=== PATIENT | male | born 1955 | race American Indian/Alaskan Native ===

== ENCOUNTER 2019-01-14 12:25 | Inpatient (IN) | payer OTHER ==
[~2019-01-14] VITALS: Ht 182.9 cm; Wt 139.4 kg
[~2019-01-14 12:25] MED LIST: HYDACE5 PO; IRBHYD150
[2019-01-14 14:00] LABS: BASOPHILS ABSOLUTE AUTO 0.03 K/mm3 (0.00-0.23); BASOPHILS PERCENT AUTO 0 % (0-2); EOSINOPHILS ABSOLUTE AUTO 0.06 K/mm3 (0.00-0.68); EOSINOPHILS PERCENT AUTO 0 % (0-6); Hemoglobin 14.9 g/dL (13.5-17.5); IMMATURE GRAN ABSOLUTE AUTO 0.08 K/mm3 (0.00-0.10); IMMATURE GRAN PERCENT AUTO 1 % (0-1); LYMPHOCYTES ABSOLUTE AUTO 1.53 K/mm3 (0.84-5.20); LYMPHOCYTES PERCENT AUTO 11 % (21-46); MONOCYTES ABSOLUTE AUTO 1.12 K/mm3 (0.16-1.47); MONOCYTES PERCENT AUTO 8 % (4-13); Mean Corpuscular HGB Conc 33.1 g/dL (31.5-36.5); Mean Corpuscular Volume 91 fL (80-100); Mean Platelet Volume 10.3 fL (9.1-12.4); NEUTROPHILS ABSOLUTE AUTO 11.63 K/mm3 (1.96-9.15); NEUTROPHILS PERCENT AUTO 80 % (41-73); Platelet Count 183 K/mm3 (150-400); RDW Coefficient Variation 12.4 % (11.7-14.2); Red Blood Cell Count 4.96 M/mm3 (4.30-5.90); White Blood Cell Count 14.45 K/mm3 (4.00-11.30)
[2019-01-14 14:33] LABS: Alanine Aminotransfer (ALT/SGP 41 U/L (12-78); Albumin, Blood 3.2 g/dL (3.4-5.0); Albumin/Globulin Ratio 0.6 (0.8-1.8); Alk Phos 114 U/L (50-136); Anion Gap 8 mmol/L (6-16); Aspartate Aminotrans (AST/SGOT 17 U/L (12-37); Bilirubin, Total 0.6 mg/dL (0.1-1.0); Blood Urea Nitrogen 18 mg/dL (8-24); CO2, Blood 29 mmol/L (21-32); Calcium, Blood 9.2 mg/dL (8.5-10.1); Chloride, Blood 92 mmol/L (98-108); Globulin, Blood 5.1 g/dL (2.2-4.0); Glomerular Filtration Rate >60 (60-); Glucose, Blood 426 mg/dL (70-99); Potassium, Blood 4.1 mmol/L (3.5-5.5); Sodium, Blood 129 mmol/L (136-145); Total Protein, Blood 8.3 g/dL (6.4-8.2)
[2019-01-14] MEDS ORDERED: XARELTO20 MG PO (16:27)
[2019-01-14] MEDS ORDERED: POTCHL10ER PO (16:28)
[2019-01-14] MEDS ORDERED: FURO20 PO (16:28)
[2019-01-14] MEDS ORDERED: GLIM4 PO (16:29)
[2019-01-14] MEDS ORDERED: METO100 PO (16:29)
[2019-01-14] MEDS ORDERED: Glucophage1000 MG PO (16:30)
[2019-01-14] MEDS ORDERED: ZESTORETIC 20-121 EA PO (16:31)
[2019-01-14] MEDS ORDERED: AMLO10 PO (16:31)
[2019-01-14] MEDS ORDERED: ALBU90OI61 INH (16:32)
--- NOTE | 2019-01-14 18:09 | NUR ---
PT ARRIVED TO UNIT AT 1800
--- NOTE | 2019-01-14 19:11 | NUR ---
PATIENT IN BED RESTING. NO COMPLAINTS. ANTIBIOTICS RUNNING.
--- NOTE | 2019-01-15 01:18 | NUR ---
VITALS TAKEN AT 2145 SHOWED VIEW SCORE OF 6 FOR HR 141 AND FEVER 101.7. CALLED TO HOSPITALIST AND ORDERED TO GIVE PTS NORMAL EVENING DOSE OF METOPROLOL 100MG ALSO TREATED FEVER WITH TYLENOL. RECHECKED VITALS @2247 MUCH BETTER. HR 103 TEMP 97.5. PT STATES FEELING FINE. WILL CONTINUE TO MONITOR.
--- NOTE | 2019-01-15 04:36 | NUR ---
NOC SHIFT SUMMARY PT ADMITTED YESTERDAY FOR INFECTION TO R GREAT TOE. HE IS AAOX4, RESP ARE EVEN AND UNLABORED. HE DID HAVE A VIEW SCORE OF 6 EARLY IN THIS SHIFT. CONTACTED [facility]ING AND BORING MACHINE FEEDER AND CALLED HOSPITALIST. HE HAS A HX OF AFIB AND HAD NOT TAKEN HIS EVENING METOPROLOL 100MG. GAVE METOPROLOL AND HR CAME DOWN FROM 139-150 DOWN TO 90'S-103. HIS FEVER WAS TREATED WITH TYLENOL WHICH BROUGHT FROM 102.2 TO 97.5. LAST VIEW SCORE OF 1. VSS SINCE. PT'S BLOOD SUGARS HAVE BEEN HIGH. 402 AT 2147, TREATED PER EMAR. AT 2334 BLOOD SUGAR OF 364. CALLED TO HOSPITALIST AND RECIEVED ORDER TO RECHECK AT 0200 AND TREAT PER SLIDING SCALE. AT 0220 SUGARG WER 321, TREATED PER SLIDING SCALE. PT IS CURRENLTY SLEEPING LIGHTLY AND APPEARS IN NO ACUTE DISTRESS. TOE IS VERY RED/SWOLLEN/DRAINING FLUID. WILL CONTINUE TO MONITOR.
[2019-01-15 05:31] LABS: BASOPHILS ABSOLUTE AUTO 0.03 K/mm3 (0.00-0.23); BASOPHILS PERCENT AUTO 0 % (0-2); EOSINOPHILS PERCENT AUTO 1 % (0-6); Hematocrit 40.6 % (37.0-53.0); Hemoglobin 13.5 g/dL (13.5-17.5); IMMATURE GRAN ABSOLUTE AUTO 0.07 K/mm3 (0.00-0.10); IMMATURE GRAN PERCENT AUTO 1 % (0-1); LYMPHOCYTES ABSOLUTE AUTO 1.26 K/mm3 (0.84-5.20); LYMPHOCYTES PERCENT AUTO 11 % (21-46); MONOCYTES ABSOLUTE AUTO 1.07 K/mm3 (0.16-1.47); MONOCYTES PERCENT AUTO 9 % (4-13); Mean Corpuscular HGB 29.9 pg (26.0-34.0); Mean Corpuscular HGB Conc 33.3 g/dL (31.5-36.5); Mean Corpuscular Volume 90 fL (80-100); NEUTROPHILS ABSOLUTE AUTO 9.42 K/mm3 (1.96-9.15); NEUTROPHILS PERCENT AUTO 79 % (41-73); Platelet Count 167 K/mm3 (150-400); RDW Coefficient Variation 12.4 % (11.7-14.2); RDW Standard Deviation 40.8 fL (35.1-46.3); Red Blood Cell Count 4.51 M/mm3 (4.30-5.90); White Blood Cell Count 11.95 K/mm3 (4.00-11.30)
[2019-01-15 05:55] LABS: Anion Gap 9 mmol/L (6-16); Blood Urea Nitrogen 17 mg/dL (8-24); CO2, Blood 27 mmol/L (21-32); Chloride, Blood 98 mmol/L (98-108); Creatinine, Blood 0.74 mg/dL (0.60-1.20); Glomerular Filtration Rate >60 (60-); Glucose, Blood 324 mg/dL (70-99); Potassium, Blood 3.9 mmol/L (3.5-5.5); Sodium, Blood 134 mmol/L (136-145)
--- NOTE | 2019-01-15 11:52 | NUR ---
01/15/19 1151 Ariel Marshall PT RECIEVED ANTIBIOTICS PRIOR TO ARRIVAL TO OR.
[2019-01-15 16:27] LABS: Vancomycin, Trough 12.2 ug/mL (5.0-10.0)
--- NOTE | 2019-01-15 19:58 | NUR ---
SUMMARY- PT A/O X3, HAD R GREAT TOE AMPUTATION SURGERY TODAY FROM APPROX [phone], POST OP VS INTACT, AFIBRILE. NEURO INTACT, PT WIDE AWAKE AND VERBAL, JOVIAL. TOLERATED FLUIDS RIGHT OFF AND ADVANCED THROUGH SHIFT TO SOLID ADA. SUGARS IN 300'S, USINS SS NOVOLOG. IN THE ROOM MOST OF THE SHIFT, SUPPORTIVE IN CARE. R FOOD HAS SURGICAL DRESSING, REMAINING TOES SHOWING, RED, GOOD CAP REFIL. SG DRESSING/ARNULFO LEFT ALONE. REPORTED TO ONLY REINFORCE NEEDED. PT DENIES PAIN HE HAS HX NEUROPATHY. REPORT TO [place] [facility]OR [facility].
--- NOTE | 2019-01-16 04:15 | NUR ---
NOC SHIFT SUMMARY PT IS PLEASANT AND COOPERATIVE WITH CARE. IN ROOM. HE HAD HIS R GREAT TOE SURGICALLY AMPUTATED YESTERDAY FOR INFECTION. DRESSING IS CLEAN, DRY, AND INTACT. PT APPEARS IN NO ACUTE DISTRESS. NO ACUTE EVENTS THIS NIGHT. WILL CONTINUE TO MONITOR.
--- NOTE | 2019-01-16 07:30 | NUR ---
PT. LYING IN BED HOB UP. DISCUSSED PT'S NEED OF A WC OR KNEE SCOOTER BEFORE GOING HOME HE IS NWBRLE. LET HIM KNOW MOST OF TE SUPPLY PLACES ARE CLOSED TODAY R/T IT BEING THURSDAY. SUGGESTED HE SEE IF HE CAN GET A WC FROM [facility] OR THE [facility] [employer]. THEN WHEN PLACES OPEN TOMORROW HE COULD GET THE KNEE SCOOTER. WE ALSO DISCUSSED HIS DIABETES MANAGEMENT.
--- NOTE | 2019-01-16 19:21 | NUR ---
PT. LYING IN BED AFTER DINNER DENIES PAIN OR NAUSEA. NO NOTEABLE CHANGES THIS SHIFT.
[2019-01-17 05:28] LABS: BASOPHILS ABSOLUTE AUTO 0.04 K/mm3 (0.00-0.23); BASOPHILS PERCENT AUTO 1 % (0-2); EOSINOPHILS ABSOLUTE AUTO 0.19 K/mm3 (0.00-0.68); EOSINOPHILS PERCENT AUTO 3 % (0-6); Hematocrit 40.7 % (37.0-53.0); Hemoglobin 13.1 g/dL (13.5-17.5); IMMATURE GRAN ABSOLUTE AUTO 0.04 K/mm3 (0.00-0.10); IMMATURE GRAN PERCENT AUTO 1 % (0-1); LYMPHOCYTES ABSOLUTE AUTO 1.69 K/mm3 (0.84-5.20); LYMPHOCYTES PERCENT AUTO 24 % (21-46); MONOCYTES ABSOLUTE AUTO 0.55 K/mm3 (0.16-1.47); MONOCYTES PERCENT AUTO 8 % (4-13); Mean Corpuscular HGB 29.1 pg (26.0-34.0); Mean Corpuscular HGB Conc 32.2 g/dL (31.5-36.5); Mean Corpuscular Volume 90 fL (80-100); Mean Platelet Volume 10.3 fL (9.1-12.4); NEUTROPHILS ABSOLUTE AUTO 4.66 K/mm3 (1.96-9.15); NEUTROPHILS PERCENT AUTO 65 % (41-73); Platelet Count 206 K/mm3 (150-400); RDW Coefficient Variation 12.3 % (11.7-14.2); RDW Standard Deviation 40.5 fL (35.1-46.3); White Blood Cell Count 7.17 K/mm3 (4.00-11.30)
[2019-01-17 05:41] LABS: Vancomycin, Trough 5.6 ug/mL (5.0-10.0)
[2019-01-17 06:00] LABS: Albumin, Blood 2.6 g/dL (3.4-5.0); Anion Gap 9 mmol/L (6-16); Blood Urea Nitrogen 15 mg/dL (8-24); Bun/Creatinine Ratio 19.2 (12.0-20.0); CO2, Blood 27 mmol/L (21-32); Calcium, Blood 8.9 mg/dL (8.5-10.1); Chloride, Blood 100 mmol/L (98-108); Creatinine, Blood 0.78 mg/dL (0.60-1.20); Glomerular Filtration Rate >60 (60-); Glucose, Blood 275 mg/dL (70-99); Phosphorus, Blood 3.3 mg/dL (2.5-4.9); Sodium, Blood 136 mmol/L (136-145)
--- NOTE | 2019-01-17 07:52 | NUR ---
NOC SHIFT SUMMARY. PT PLEASANT AND COOPERATIVE WITH CARE. DRESSING TO R FOOT IS C/D/I. VSS. PER NOTE PT WILL NEED RX FOR KNEE SKOOTER, CONSULT WITH DIETITION, AND DIABETIC SUPPLIES. HIS PCP IS THROUGH [facility]. NO ACUTE EVENT LAST NIGHT. APPEARS IN NO ACUTE DISTRESS. REPORT TO ONCOMING RN.
[2019-01-17] MEDS ORDERED: Rocephin 1g1 G/50 ML IV (16:53)
[2019-01-17] MEDS ORDERED: Norco 5-325 Ta1 EACH PO (16:53)
[2019-01-17] MEDS ORDERED: INSULANPEN SC (16:53)
[2019-01-17] MEDS ORDERED: Culturelle1 CAP PO (16:54)
--- NOTE | 2019-01-17 18:16 | NUR ---
DISCHARGE PT IS A/O X4, PLEASANT AFFECT, COOPERATIVE WITH NON WT BRG STATUS RLE. DR HANCOCK IN TO SEE HIM THIS AM, DRSG RLE CDI, PT TO F/U WITH DR HANCOCK THIS THURSDAY. DR SANTOS IN TO SEE PT, ORDER CONSULT W DR CRAIG FOR ANTIBX OUTPT. DR CRAIG PLACE ANTIBX ORDERS FOR [address] SANTOS PLACE D/C ORDERS. FERRIS WHEEL ATTENDANT PLACE PICC LINE & ARRANGE APPT FOR PT WITH ATC. D/C INSTRUCT PROVIED WITH EMPHASIS ON CAREFUL MX & RECORD BLOOD SUGAR, INSULIN ADMINISTRATION, PICC CARE, F/U DR JUSTINT. PT & VERBALIZE UNDERSTANDING. THEY ARE PLEASANT & APPRECIATIVE. PT PROVIDED W/C ESCORT FROM HOSP & ASSISTED INTO AUTO. SCRIPTS FAXED TO [facility] HARD COPY SCRIPTS PROVIDED TO PT.
== END 2019-01-17 17:55 | disposition home or self-care (01) | DRG 255 ==
LOC: ER 12:25 → MEDS 16:19 → ENPENDDIS 01-17 17:22 → MEDS 01-17 17:55
PROVIDERS: Family Medicine; Physician Assistant; Podiatrist Foot & Ankle Surgery; ADMIT Internal Medicine
PROC: 0Y6P0Z0 Detachment at Right 1st Toe, Complete, Open Approach (ICD-10-PCS; principal; 2019-01-15 11:00)
DX: E11.52 Type 2 diabetes mellitus with diabetic peripheral angiopathy with gangrene (principal); A48.0 Gas gangrene; M86.9 Osteomyelitis, unspecified; M84.477A Pathological fracture, right toe(s), initial encounter for fracture; R78.81 Bacteremia; E11.621 Type 2 diabetes mellitus with foot ulcer; E11.69 Type 2 diabetes mellitus with other specified complication; L97.519 Non-pressure chronic ulcer of other part of right foot with unspecified severity; Z79.4 Long term (current) use of insulin; E11.59 Type 2 diabetes mellitus with other circulatory complications; E11.40 Type 2 diabetes mellitus with diabetic neuropathy, unspecified; I48.2 Chronic atrial fibrillation; Z79.01 Long term (current) use of anticoagulants; E11.65 Type 2 diabetes mellitus with hyperglycemia; B95.1 Streptococcus, group B, as the cause of diseases classified elsewhere
CPT/HCPCS: 36415; 71045; 73630; 80048; 80053; 80069; 80202; 82947; 83036; 83605; 85025; 85651; 86140; 87040; 87147; 93005; 93010; 93306; 96365; 99284-25; J0696; J0744; J2250; J2370; J2704; J3010; J3370; J7030; J7050; J7120

== ENCOUNTER 2019-01-19 09:52 | Day surgery (SDC) | payer OTHER ==
[~2019-01-19 09:52] MED LIST changes: +ALBU90OI61 INH; +AMLO10 PO; +Culturelle1 CAP PO; +FURO20 PO; +GLIM4 PO; +Glucophage1000 MG PO; +INSULANPEN SC; +METO100 PO; +Norco 5-325 Ta1 EACH PO; +POTCHL10ER PO; +Rocephin 1g1 G/50 ML IV; +XARELTO20 MG PO; +ZESTORETIC 20-121 EA PO
--- NOTE | 2019-01-19 10:46 | NUR ---
1030- PATIENT STATES HE HAS A RASH THAT STARTED APPROXIMATELY 1 HOUR POST INITIAL INFUSION OF IV ABX PRIRO TO D/C FROM HOSPITAL THAT CONTINUES TO GROW EVERY DAY AND IS "ITCHY". RASH AND REDNESS STARTS FROM R MEDIAL LE STARTING AROUND ANKLE THE MOVING UP TO MID THIGH. PT STATES HE ALSO HAS A SPOT ON BACK THAT HIS FOUND LAST NIGHT. ATTEMPTED TO NOTIFY DR. CRAIG AT HIS OFFICE BUT STAFF STATED HE HASN'T BEEN SEEN IN OFFICE YET SO I CALLED THE CONSULT LINE AND LEFT MSG EXPLAINING SITUATION TO MD. TALKED WITH PHARMACIST SAÚL AND HE AGREED TO HOLD AND CONTACT MD ON REACTION TO RX. HELD ROCEPHIN AND TOLD PT TO CALL PRIOR TO APPOINTMENT ON THURSDAY TO SEE IF WE HAVE HEARD FROM MD. NOTIFIED RN FOR THURSDAY SHIFT.
--- NOTE | 2019-01-19 14:18 | NUR ---
DR. CRAIG CALLED BACK TO CLINIC WITH NEW ORDERS TO START VANCO PER PHARMACY PROTOCOL, HOWEVER IF PATIENT CAN NOT HANDLE BID ORDERS THEN WE ARE TO CALL MD BACK TO TRY A DIFFERENT TX.
== END 2019-01-19 22:44 | disposition home or self-care (01) ==
LOC: ATC 09:52
DX: E11.69 Type 2 diabetes mellitus with other specified complication (principal); M86.9 Osteomyelitis, unspecified; I10 Essential (primary) hypertension; J45.909 Unspecified asthma, uncomplicated; E11.65 Type 2 diabetes mellitus with hyperglycemia; E87.1 Hypo-osmolality and hyponatremia; I48.91 Unspecified atrial fibrillation; Z88.0 Allergy status to penicillin
CPT/HCPCS: J0696

== ENCOUNTER 2019-01-23 09:50 | Day surgery (SDC) | payer OTHER | END 2019-01-23 10:31 | disposition home or self-care (01) | LOC: ATC 09:50 | DX: E11.69 Type 2 diabetes mellitus with other specified complication (principal); M86.9 Osteomyelitis, unspecified; E11.52 Type 2 diabetes mellitus with diabetic peripheral angiopathy with gangrene; A48.0 Gas gangrene; I10 Essential (primary) hypertension; I48.91 Unspecified atrial fibrillation; D72.829 Elevated white blood cell count, unspecified; J45.909 Unspecified asthma, uncomplicated; E66.9 Obesity, unspecified; Z88.0 Allergy status to penicillin; Z79.899 Other long term (current) drug therapy; Z79.84 Long term (current) use of oral hypoglycemic drugs | CPT/HCPCS: 96365; J0878 ==

== ENCOUNTER 2019-01-24 09:56 | Day surgery (SDC) | payer OTHER | END 2019-01-24 10:35 | disposition home or self-care (01) | LOC: ATC 09:56 | DX: E11.69 Type 2 diabetes mellitus with other specified complication (principal); M86.9 Osteomyelitis, unspecified; I10 Essential (primary) hypertension; I48.91 Unspecified atrial fibrillation; J45.909 Unspecified asthma, uncomplicated; E66.9 Obesity, unspecified; Z88.0 Allergy status to penicillin | CPT/HCPCS: J0878 ==

== ENCOUNTER 2019-01-26 00:37 | Day surgery (SDC) | payer OTHER | END 2019-01-26 10:29 | disposition home or self-care (01) | LOC: ATC 00:37 | DX: E11.69 Type 2 diabetes mellitus with other specified complication (principal); M86.9 Osteomyelitis, unspecified; I10 Essential (primary) hypertension; J45.909 Unspecified asthma, uncomplicated; Z88.0 Allergy status to penicillin; Z79.899 Other long term (current) drug therapy; Z79.4 Long term (current) use of insulin | CPT/HCPCS: 96365; J0878 ==

== ENCOUNTER 2019-06-30 08:40 | Emergency (ER) | payer OTHER ==
[~2019-06-30] VITALS: Ht 193 cm; Wt 136.1 kg
[2019-06-30 09:30] LABS: BASOPHILS ABSOLUTE AUTO 0.09 K/mm3 (0.00-0.23); BASOPHILS PERCENT AUTO 1 % (0-2); EOSINOPHILS ABSOLUTE AUTO 1.07 K/mm3 (0.00-0.68); EOSINOPHILS PERCENT AUTO 10 % (0-6); Hematocrit 44.5 % (37.0-53.0); Hemoglobin 14.7 g/dL (13.5-17.5); IMMATURE GRAN ABSOLUTE AUTO 0.02 K/mm3 (0.00-0.10); IMMATURE GRAN PERCENT AUTO 0 % (0-1); LYMPHOCYTES ABSOLUTE AUTO 1.49 K/mm3 (0.84-5.20); LYMPHOCYTES PERCENT AUTO 14 % (21-46); MONOCYTES PERCENT AUTO 6 % (4-13); Mean Corpuscular HGB 29.6 pg (26.0-34.0); Mean Corpuscular Volume 90 fL (80-100); NEUTROPHILS ABSOLUTE AUTO 7.58 K/mm3 (1.96-9.15); NEUTROPHILS PERCENT AUTO 70 % (41-73); Platelet Count 165 K/mm3 (150-400); RDW Coefficient Variation 12.9 % (11.7-14.2); RDW Standard Deviation 42.2 fL (35.1-46.3); Red Blood Cell Count 4.96 M/mm3 (4.30-5.90); White Blood Cell Count 10.85 K/mm3 (4.00-11.30)
[2019-06-30] MEDS ORDERED: Aldactone100 MG PO (09:41)
[2019-06-30] MEDS ORDERED: Amlodipine Besy10 MG PO (09:41)
[2019-06-30] MEDS ORDERED: ZESTORETIC 20-1 EACH PO (09:41)
[2019-06-30] MEDS ORDERED: ATOR40TA PO (09:42)
[2019-06-30] MEDS ORDERED: XARELTO20 MG PO (09:42)
[2019-06-30] MEDS ORDERED: SILD25T PO (09:42)
[2019-06-30] MEDS ORDERED: GLIM4 PO (09:43)
[2019-06-30] MEDS ORDERED: METO100 PO (09:43)
[2019-06-30] MEDS ORDERED: ALBU3IS INH (09:43)
[2019-06-30] MEDS ORDERED: METF500C PO (09:43)
[2019-06-30] MEDS ORDERED: INSULANPEN SC (09:44)
[2019-06-30 11:22] LABS: Alanine Aminotransfer (ALT/SGP 39 U/L (12-78); Albumin, Blood 3.7 g/dL (3.4-5.0); Albumin/Globulin Ratio 0.9 (0.8-1.8); Alk Phos 100 U/L (50-136); Anion Gap 7 mmol/L (6-16); Aspartate Aminotrans (AST/SGOT 27 U/L (12-37); Bilirubin, Total 0.4 mg/dL (0.1-1.0); Blood Urea Nitrogen 16 mg/dL (8-24); Bun/Creatinine Ratio 18.2 (12.0-20.0); CO2, Blood 27 mmol/L (21-32); Calcium, Blood 9.1 mg/dL (8.5-10.1); Chloride, Blood 102 mmol/L (98-108); Creatinine, Blood 0.88 mg/dL (0.60-1.20); Glomerular Filtration Rate >60 (60-); Glucose, Blood 202 mg/dL (70-99); Potassium, Blood 4.5 mmol/L (3.5-5.5); Sodium, Blood 136 mmol/L (136-145); Total Protein, Blood 7.7 g/dL (6.4-8.2); Troponin I <0.015 ng/mL (0.000-0.040)
[2019-06-30] MEDS ORDERED: ALBU90OI INH (11:56)
[2019-06-30] MEDS ORDERED: BENZ100A PO (11:56)
[2019-06-30] MEDS ORDERED: Prednisone20 MG PO (11:56)
[2019-06-30] MEDS ORDERED: [UNRECOGNIZED DRUG - SUPPLY] PO (12:09)
[2019-06-30] MEDS ORDERED: Ventolin Sy2 MG/5 ML PO (12:09)
== END 2019-06-30 12:19 | disposition home or self-care (01) ==
LOC: ER 08:40
PROVIDERS: Emergency Medicine
DX: J40 Bronchitis, not specified as acute or chronic (principal); I48.91 Unspecified atrial fibrillation; R09.02 Hypoxemia; E11.65 Type 2 diabetes mellitus with hyperglycemia; I10 Essential (primary) hypertension; Z87.891 Personal history of nicotine dependence; Z88.0 Allergy status to penicillin; Z88.1 Allergy status to other antibiotic agents; Z79.899 Other long term (current) drug therapy; Z79.01 Long term (current) use of anticoagulants; Z79.4 Long term (current) use of insulin
CPT/HCPCS: 36415; 71046; 80053; 83880; 84484; 85025; 93005; 93010; 94644; 96374; 99284-25; J2930

== ENCOUNTER 2020-07-02 07:02 | Inpatient (IN) | payer OTHER ==
[~2020-07-02] VITALS: Ht 190.5 cm; Wt 136.2 kg
[~2020-07-02 07:02] MED LIST changes: +ALBU3IS INH; +ALBU90OI INH; +ATOR40TA PO; +Aldactone100 MG PO; +Amlodipine Besy10 MG PO; +BASAGLAR K100 UNIT/1 SC; +BENZ100A PO; +METF500 PO; +Prednisone20 MG PO; +SILD25T PO; +Ventolin Sy2 MG/5 ML PO; +ZESTORETIC 20-1 EACH PO; +[UNRECOGNIZED DRUG - SUPPLY] PO
[2020-07-02 08:26] LABS: BASOPHILS ABSOLUTE AUTO 0.01 K/mm3 (0.00-0.23); BASOPHILS PERCENT AUTO 0 % (0-2); EOSINOPHILS PERCENT AUTO 0 % (0-6); Hematocrit 39.6 % (37.0-53.0); Hemoglobin 13.3 g/dL (13.5-17.5); IMMATURE GRAN ABSOLUTE AUTO 0.03 K/mm3 (0.00-0.10); IMMATURE GRAN PERCENT AUTO 1 % (0-1); LYMPHOCYTES ABSOLUTE AUTO 1.01 K/mm3 (0.84-5.20); LYMPHOCYTES PERCENT AUTO 16 % (21-46); MONOCYTES ABSOLUTE AUTO 0.51 K/mm3 (0.16-1.47); MONOCYTES PERCENT AUTO 8 % (4-13); Mean Corpuscular HGB Conc 33.6 g/dL (31.5-36.5); Mean Corpuscular Volume 87 fL (80-100); Mean Platelet Volume 10.8 fL (9.1-12.4); NEUTROPHILS ABSOLUTE AUTO 4.95 K/mm3 (1.96-9.15); NEUTROPHILS PERCENT AUTO 76 % (41-73); Platelet Count 118 K/mm3 (150-400); RDW Coefficient Variation 13.2 % (11.7-14.2); RDW Standard Deviation 41.2 fL (35.1-46.3); Red Blood Cell Count 4.58 M/mm3 (4.30-5.90); White Blood Cell Count 6.51 K/mm3 (4.00-11.30)
[2020-07-02 08:27] LABS: International Normalized Ratio 1.15; Prothrombin Time Results 12.2 Sec (9.7-11.5)
[2020-07-02 08:56] LABS: Alanine Aminotransfer (ALT/SGP 44 U/L (12-78); Albumin, Blood 3.3 g/dL (3.4-5.0); Albumin/Globulin Ratio 0.8 (0.8-1.8); Alk Phos 71 U/L (50-136); Anion Gap 9 mmol/L (6-16); Aspartate Aminotrans (AST/SGOT 51 U/L (12-37); Bilirubin, Total 0.6 mg/dL (0.1-1.0); Blood Urea Nitrogen 49 mg/dL (8-24); Bun/Creatinine Ratio 25.7 (12.0-20.0); CO2, Blood 24 mmol/L (21-32); Calcium, Blood 8.9 mg/dL (8.5-10.1); Chloride, Blood 97 mmol/L (98-108); Creatinine, Blood 1.91 mg/dL (0.60-1.20); Globulin, Blood 4.1 g/dL (2.2-4.0); Glomerular Filtration Rate 38 (60-); Glucose, Blood 129 mg/dL (70-99); Potassium, Blood 4.4 mmol/L (3.5-5.5); Sodium, Blood 130 mmol/L (136-145); Total Protein, Blood 7.4 g/dL (6.4-8.2); Troponin I <0.015 ng/mL (0.000-0.040)
[2020-07-02 09:33] LABS: Adenovirus Not Detected (NOT DETECT); Bordetella pertussis Not Detected (NOT DETECT); Chlamydophila pneumoniae Not Detected (NOT DETECT); Coronavirus 229E Not Detected (NOT DETECT); Coronavirus HKU1 Not Detected (NOT DETECT); Coronavirus NL63 Not Detected (NOT DETECT); Coronavirus OC43 Not Detected (NOT DETECT); Human Metapneumovirus Not Detected (NOT DETECT); Human Rhinovirus/Enterovirus Not Detected (NOT DETECT); Influenza A/2009-H1 Not Detected (NOT DETECT); Influenza A/H1 Not Detected (NOT DETECT); Influenza A/H3 Not Detected (NOT DETECT); Influenza B Not Detected (NOT DETECT); Mycoplasma pneumoniae Not Detected (NOT DETECT); Parainfluenza Virus 1 Not Detected (NOT DETECT); Parainfluenza Virus 2 Not Detected (NOT DETECT); Parainfluenza Virus 3 Not Detected (NOT DETECT); Parainfluenza Virus 4 Not Detected (NOT DETECT); Respiratory Syncytial Virus Not Detected (NOT DETECT); SARS-Cov-2 (COVID-19), BioFire Detected (NOT DETECT)
[2020-07-02 12:23] LABS: PCO2 Arterial 33.4 mmHg (35-45); PO2 Arterial 59.6 mmHg (80-100); pH Blood Arterial 7.34 (7.35-7.45)
--- NOTE | 2020-07-02 14:15 | NUR ---
PT ADMITTED TO ICU 8 AT 1330 FROM ER FOR HYPOXIA R/T COVID 19. PT ARRIVED AWAKE AND ALERT ON 8L O2 VIA OXYMIZER. MEENAKSHI [employer]ARM BOSS IN UNIT SHORTLY AFTER ARRIVAL TO CHECK ON PT. ORDERS TO TITRATE O2 TO KEEP SATS AT OR >92%. O2 INCREASED TO 10L. SATS NOW 92%. LUNGS VERY DIMINISHED TO BASES; ALMOST ABSENT. PT HAS DRY COUGH, STATES THAT IT HAS BEEN PRODUCTIVE. PT ARRIVED W LEVOPHED AT 5MCG; MAP IS >60-65. PT AFEBRILE; ORAL PROBE USED PT VERY DIAPHORETIC. PT ABLE TO SPEAK W MINIMAL DYSPNEA. RESP 20-30'S.
--- NOTE | 2020-07-02 17:40 | NUR ---
PT ADMITTED TO ICU FOR HYPOXIA 2ND TO COVID 19. LEVOPHED WAS AT 5MCG AND HAS BEEN TITRATED OFF OVER THE PAST TWO HRS. MAP >65. O2 REMAINS AT 10L VIA OXYMIZER, SATS 90-93%. SATS BRIEFLY TO 88-89% WHILE SPEAKING. SOME SLEEP APNEA NOTED WHILE PT WAS SLEEPING. PT TOLERATING DIET. ADEQUATE U/O.
--- NOTE | 2020-07-02 19:34 | NUR ---
ASSUMED CARE RECEIVED REPORT FROM CHARLEY CALLOWAY. PT IS SLEEPING IN BED, COMFORTABLY, ON 10L OXYMIZER. HE IS IN AFIB, RATE 70s, WITH A STABLE BP. BED LOW AND LOCKED. CALL LIGHT WITHIN REACH.
--- NOTE | 2020-07-02 22:42 | NUR ---
UPDATE PT ASKED FOR SOMETHING TO HELP HIM SLEEP. HE HAS MILD ANXIETY AND SINCE THE START OF MY SHIFT HAS BEEN STRUGGLING STAYING ASLEEP. 50 MG OF TRAZADONE GIVEN. WILL CONTINUE TO MONITOR. BP SOFT BUT MAP IS 65 OR GREATER.
[2020-07-03 03:49] LABS: PCO2 Arterial 32.6 mmHg (35-45); PO2 Arterial 66.4 mmHg (80-100); pH Blood Arterial 7.34 (7.35-7.45)
[2020-07-03 04:03] LABS: BASOPHILS ABSOLUTE AUTO 0.01 K/mm3 (0.00-0.23); BASOPHILS PERCENT AUTO 0 % (0-2); EOSINOPHILS PERCENT AUTO 0 % (0-6); Hematocrit 38.5 % (37.0-53.0); Hemoglobin 12.9 g/dL (13.5-17.5); IMMATURE GRAN ABSOLUTE AUTO 0.01 K/mm3 (0.00-0.10); IMMATURE GRAN PERCENT AUTO 0 % (0-1); LYMPHOCYTES ABSOLUTE AUTO 0.77 K/mm3 (0.84-5.20); LYMPHOCYTES PERCENT AUTO 15 % (21-46); MONOCYTES ABSOLUTE AUTO 0.44 K/mm3 (0.16-1.47); MONOCYTES PERCENT AUTO 9 % (4-13); Mean Corpuscular HGB 28.9 pg (26.0-34.0); Mean Corpuscular HGB Conc 33.5 g/dL (31.5-36.5); Mean Corpuscular Volume 86 fL (80-100); Mean Platelet Volume 10.2 fL (9.1-12.4); NEUTROPHILS ABSOLUTE AUTO 3.86 K/mm3 (1.96-9.15); NEUTROPHILS PERCENT AUTO 76 % (41-73); Platelet Count 121 K/mm3 (150-400); RDW Coefficient Variation 13.2 % (11.7-14.2); RDW Standard Deviation 41.9 fL (35.1-46.3); Red Blood Cell Count 4.47 M/mm3 (4.30-5.90); White Blood Cell Count 5.09 K/mm3 (4.00-11.30)
[2020-07-03 04:15] LABS: Magnesium, Blood 2.2 mg/dL (1.6-2.4); Phosphorus, Blood 2.9 mg/dL (2.5-4.9)
--- NOTE | 2020-07-03 05:01 | NUR ---
SHIFT SUMMARY PT HAS REMAINED ON OXYMIZER T/O NIGHT AT 10 L, SAT'S PRIMARILY HAVE BEEN AT 92%, BUT HAVE BEEN HIGH 94%, AND EVEN DROPPED IN THE MID 80s WITH EXERTION - BUT HE WAS ALWAYS ABLE TO RECOVER. HE IS ALERT AND ORIENTED X 4 WHEN AWAKE. HE IS IN AFIB, RATE CONTROLLED IN THE 60-70s. HE BECAME HYPOTENSIVE LAST NIGHT (ASYMPTOMATIC), SO I STARTED HIM ON LOW DOSE LEVOPHED. CURRENTLY IT IS AT 4 MCG/MIN. MAP > 65. PT HAS BEEN IN AND OUT OF SLEEP T/O NIGHT. HE IS MAKING ADEQUATE URINE OUTPUT. HE HAS NS INFUSING AT 100 ML/HR. AFEBRILE. DENIES PAIN. HIS ABG HAS NOT CHANGED SIGNIFICANTLY, BUT THE LITTLE CHANGE IT DID DO, WAS IN THE RIGHT DIRECTION. BED LOW AND LOCKED. CALL LIGHT WITHIN REACH.
--- NOTE | 2020-07-03 08:39 | NUR ---
CARE OF PT ASSUMED AT 0700. ON ASSESSMENT LEVOPHED AT 4MCG. LEVOPHED PLACED ON STANDBY AT 0730 THEN DISCONNECTED AT 0800 BP VERY STABLE. NS CONT AT 100CC/HR; PT TAKING IN ADEQUATE PO AND HAS ADEQUATE U/O. PT ON 12L O2 VIA OXYMIZER, SATS 90-93%. PT ASSISTED UP TO CHAIR; WEAK PT TOLERATED TRANSFER WELL. PT STATES HE FEELS BETTER TODAY THAN YESTERDAY. SOME DYSPNEA W SPEECH. BS 309; PT RECEIVING HALF HIS USUAL INSULIN DOSE W LOW SS. PT TOLERATING ADA DIET.
--- NOTE | 2020-07-03 10:40 | NUR ---
PT ASSISTED BACK TO BED AND PLACED IN MODIFIED PRONE POSITION; PLACED ON RIGHT SIDE LEANING INTO PILLOWS PT HAS LARGE ABD/CHEST. LEVOPHED STARTED AT 2MCG FOR SOFT BP TRENDING DOWN; THIS DISCUSSED W DR HYMAN. SATS 95% ON 8L VIA OXYMIZER IN THIS PRONE POSITION.
[2020-07-03 10:54] LABS: Anion Gap 10 mmol/L (6-16); Blood Urea Nitrogen 45 mg/dL (8-24); CO2, Blood 20 mmol/L (21-32); Calcium, Blood 8.1 mg/dL (8.5-10.1); Chloride, Blood 106 mmol/L (98-108); Creatinine, Blood 1.25 mg/dL (0.60-1.20); Glomerular Filtration Rate >60 (60-); Glucose, Blood 288 mg/dL (70-99); Potassium, Blood 4.7 mmol/L (3.5-5.5); Sodium, Blood 136 mmol/L (136-145)
--- NOTE | 2020-07-03 11:55 | NUR ---
DR SANTOS IN TO SEE PT. LEVOPHED REMAINS AT 2MCG. LEVAQUIN STARTED. PT EATING LUNCH IN BED. TYLENOL GIVEN FOR MILD STATON.
--- NOTE | 2020-07-03 17:49 | NUR ---
PT DID WELL TODAY. EXCELLENT PO INTAKE AND U/O. O2 TITRATED DOWN TO 8L FROM 12L. PT PLACED IN A MODIFIED PRONE POSITION X 2; HIS SATS IMPROVED UP TO 96% FROM 90% EACH TIME. BLOOD SUGARS REMAIN HIGH DESPITE CHANGING TO HIGH S/S; AROUND 300. PT IS STILL ONLY RECEIVING HALF HIS USUAL LONG ACTING INSULIN DOSE. PT SAT UP IN CHAIR ONCE AND TOLERATED WELL.
--- NOTE | 2020-07-03 20:00 | NUR ---
ASSUMED CARE OF PT AT 1915. REPORT RECEIVED. PT PRESENTS IN BED. ALERT AND ORIENTED. PLEASANT AND COOPERATIVE WITH CARE AND ASSESSMENT. DENIES COMPLAINTS OF PAIN. DOES STATE HE IS FEELING MUCH BETTER SINCE ADMIT. OXYGEN IN PLACE KEEPS O2 SATS > 90 PERCENT. WILL REVIEW CHART AND PLAN OF CARE FOR THIS PT.
--- NOTE | 2020-07-04 | NUR ---
PT CONTINUED WITH COMPLAINT OF HEADACHE. DID OBTAIN ONE TIME DOSE ULTRAM FROM JOSELO HASSAN AND ADMINISTERED DOSE DURING EVENING. PT STATES THIS HAS GOOD RESULTS. PT HAS BEEN ABLE TO MOVE ABOUT IN BED ON HIS OWN. DENIES DYSPNEA. HAVE BEEN ABLE TO TITRATE DOWN OXYGEN TO 7 LITERS PER MINUTE. LEVOPHED HAS BEEN OFF SINCE APPROX 0. PT HAS MAINTAINED MAP > 60 WITHOUT LEVOPHED. WILL CONTINUE TO MONITOR PT.
[2020-07-04 05:39] LABS: BASOPHILS ABSOLUTE AUTO 0.01 K/mm3 (0.00-0.23); BASOPHILS PERCENT AUTO 0 % (0-2); EOSINOPHILS PERCENT AUTO 0 % (0-6); Hematocrit 37.9 % (37.0-53.0); Hemoglobin 12.7 g/dL (13.5-17.5); IMMATURE GRAN ABSOLUTE AUTO 0.04 K/mm3 (0.00-0.10); IMMATURE GRAN PERCENT AUTO 1 % (0-1); LYMPHOCYTES ABSOLUTE AUTO 0.89 K/mm3 (0.84-5.20); LYMPHOCYTES PERCENT AUTO 13 % (21-46); MONOCYTES PERCENT AUTO 7 % (4-13); Mean Corpuscular HGB 28.9 pg (26.0-34.0); Mean Corpuscular HGB Conc 33.5 g/dL (31.5-36.5); Mean Corpuscular Volume 86 fL (80-100); NEUTROPHILS ABSOLUTE AUTO 5.63 K/mm3 (1.96-9.15); NEUTROPHILS PERCENT AUTO 80 % (41-73); Platelet Count 129 K/mm3 (150-400); RDW Coefficient Variation 13.4 % (11.7-14.2); RDW Standard Deviation 42.6 fL (35.1-46.3); White Blood Cell Count 7.07 K/mm3 (4.00-11.30)
[2020-07-04 05:56] LABS: Anion Gap 6 mmol/L (6-16); Blood Urea Nitrogen 28 mg/dL (8-24); Bun/Creatinine Ratio 34.1 (12.0-20.0); CO2, Blood 24 mmol/L (21-32); Calcium, Blood 8.3 mg/dL (8.5-10.1); Chloride, Blood 109 mmol/L (98-108); Creatinine, Blood 0.82 mg/dL (0.60-1.20); Glomerular Filtration Rate >60 (60-); Glucose, Blood 217 mg/dL (70-99); Phosphorus, Blood 2.1 mg/dL (2.5-4.9); Potassium, Blood 4.4 mmol/L (3.5-5.5); Sodium, Blood 139 mmol/L (136-145)
--- NOTE | 2020-07-04 06:32 | NUR ---
PT HAS BEEN ABLE TO MAINTAIN WITH O2 AT 7 L/M AND WITH LEVOPHED OFF. A FEW BLOOD PRESSURES HAVE BEEN AFFECTED BY POSITIONING. PT IS ABLE TO MOVE ABOUT IN BED ON HIS OWN. NO COMPLAINTS VOICED. HAS VOIDED Q.S. WILL CONTINUE TO MONITOR PT, AND WILL REPORT OFF TO ONCOMING RN.
--- NOTE | 2020-07-04 08:10 | NUR ---
ASSUMED CARE OF PT AT 0700. REPORT FROM KWABENA WHITEHEAD. PT RESTING IN BED. AWAKE. A&OX 3. ANSWERS QUESTIONS APPROPRIATELY. FOLLOWS COMMANDS. SPEAKING IN FULL SENTANCES. LABORED RESP c EXERTION OR REPOSITIONING IN BED. ABLE TO SHIFT HIPS AND REPOSITION SELF IN BED. LUNGS DIMINISHED IN BASES. DRY COUGH. PT STATES HE FEELS SLIGHTLY WORSE THAN YESTERDAY. 7L O2 VIA OXYMIZER. VSS. CENTRAL LINE TO RIJ, DRESSING C/D/I. GOOD APPETITE. WILL CONTINUE TO MONITOR.
--- NOTE | 2020-07-04 17:03 | NUR ---
SHIFT SUMMARY/TRANSFER TO PCU. ASSESSMENT REMAINS UNCHANGED. PT CONTINUES ON 7L O2 VIA OXYMIZER, OCCASIONALLY DESATS c EXERTION. PT BECOMES TACHYPNEC, TACHYCARDIC c EXERTION. RECOVERS WHEN PT RESTS. LUNGS DIMINISHED IN BASES. DRY COUGH. BP STABLE. PT UP TO CHAIR FOR SEVERAL HOURS. BEDBATH COMPLETED. CENTRAL LINE LEFT IN PLACE D/T PT UNABILITY TO LAY FLAT FOR REMOVAL. REPORT TO PRESTON WHITEHEAD. ALL BELONGINGS TRANSFERRED c PT.
--- NOTE | 2020-07-04 17:30 | NUR ---
TRANSFER NOTE RECEIVED REPROT FROM CHARLEY RICCI IN ICU. PT TO ROOM VIA WHEELCHAIR, 1 PERSON ASSIST TO BED. PT ORIENTED TO ROOM AND CALL LIGHT. PT A&Ox4; CALM AND COOPERATIVE WITH CARE. PT RESTING IN BED, 1 PERSON ASSIST. PT SOB WITH ACTIVITY; ABLE TO SPEAK IN FULL SENTENCES; DESATS TO 88-89% WHILE TALKING AND MOVEMENT; SPO2 AT REST >90% ON 7L O2 VIA OXYMIZER. PT DENIES PAIN, CHEST PAIN, NAUSEA AND DIZZINESS. AGREE WITH PREVIOUS PROFESSOR OF VEGETABLE SCIENCE. VSS. NO OTHER ACUTE CHANGES NOTED. WILL CONTINUE TO MONITOR UNTIL REPORT GIVEN TO ONCOMING RN.
--- NOTE | 2020-07-05 05:44 | NUR ---
SHIFT SUMMARY PT SLEEPING IN ROOM COMFOTABLY AT THIS TIME. NO ACUTE CHANGES IN STATUS T/O NIGHT. PT SLEPT WELL AND DENIED NEEDS T/O NIGHT. RESP EVEN UNLABORED AT REST. SATS >92% ON 7L OXIMIZER. PT REPORTED SOME GENERAL WEAKNESS FROM DECONTIONING. USES URINAL AT BEDSIDE AND CALLS APPROPRIATELY STATION BAGGAGE PORTER LIGHT FOR SBA TO RR. DENIED OTHER NEEDS. CALL LIIGHT IN REACH.
--- NOTE | 2020-07-05 12:07 | NUR ---
DR SANTOS CALLED ABOUT HR THAT IS NOW AVERAGING 130-160
--- NOTE | 2020-07-05 18:20 | NUR ---
SHIFT NOTE PT HAD AN EPISODE OF A-FIB THAT HR WENT INTO THE 160s THAT SUSTAINED FOR SEVERAL MINUTES, DR SANTOS CALLED PT WAS GIVEN 5MG METOPOROL IVP WHICH BROUGHT HR DOWN TO 98. VSS. PT DID REPORT THAT HE DOES FEEL THAT HIS BREATHING IS SLIGHTLY WORSE TODAY, BUT BREATHING DID IMPROVE WHEN HR WAS BROUGHT UNDER CONTROL. PT'S FAMILY HAS BEEN UPDATED ON STATUS. PT EDUCATED ON PRONE POSITIONING.
--- NOTE | 2020-07-06 01:37 | NUR ---
CARE ASSUMPTION ASSUMED CARE OF PT @ APPROX 2300 THIS SHIFT. PT A&O X4. VSS. MONITOR SHOWS AFIB, HR 90's-110's. SPO2 TITRATED FROM 8L OXYMIZER TO 10L OXYMIZER FOR SPO2 > 92%. PT REPORTS "I'VE PRONED TWICE TONIGHT ALREADY FOR A FEW HOURS & I THINK IT REALLY HELPS. HERE SOON I'LL GET BACK IN POSITION & DO IT AGAIN FOR ANOTHER FEW HOURS OF SLEEP." PT REPORTS FEELING BETTER THIS EVENING. WILL CONTINUE TO MONITOR & PROVIDE CARE.
[2020-07-06 03:43] LABS: BASOPHILS ABSOLUTE AUTO 0.01 K/mm3 (0.00-0.23); BASOPHILS PERCENT AUTO 0 % (0-2); EOSINOPHILS PERCENT AUTO 0 % (0-6); Hematocrit 41.8 % (37.0-53.0); Hemoglobin 13.5 g/dL (13.5-17.5); IMMATURE GRAN ABSOLUTE AUTO 0.03 K/mm3 (0.00-0.10); IMMATURE GRAN PERCENT AUTO 0 % (0-1); LYMPHOCYTES ABSOLUTE AUTO 1.11 K/mm3 (0.84-5.20); LYMPHOCYTES PERCENT AUTO 15 % (21-46); MONOCYTES ABSOLUTE AUTO 0.54 K/mm3 (0.16-1.47); MONOCYTES PERCENT AUTO 7 % (4-13); Mean Corpuscular HGB 28.2 pg (26.0-34.0); Mean Corpuscular HGB Conc 32.3 g/dL (31.5-36.5); Mean Corpuscular Volume 87 fL (80-100); Mean Platelet Volume 10.6 fL (9.1-12.4); NEUTROPHILS ABSOLUTE AUTO 5.83 K/mm3 (1.96-9.15); NEUTROPHILS PERCENT AUTO 78 % (41-73); Platelet Count 171 K/mm3 (150-400); RDW Coefficient Variation 13.3 % (11.7-14.2); RDW Standard Deviation 43.2 fL (35.1-46.3); Red Blood Cell Count 4.78 M/mm3 (4.30-5.90); White Blood Cell Count 7.52 K/mm3 (4.00-11.30)
[2020-07-06 03:58] LABS: Albumin, Blood 3.1 g/dL (3.4-5.0); Anion Gap 6 mmol/L (6-16); Blood Urea Nitrogen 20 mg/dL (8-24); Bun/Creatinine Ratio 26.8 (12.0-20.0); CO2, Blood 28 mmol/L (21-32); Calcium, Blood 8.9 mg/dL (8.5-10.1); Chloride, Blood 104 mmol/L (98-108); Creatinine, Blood 0.75 mg/dL (0.60-1.20); Glomerular Filtration Rate >60 (60-); Glucose, Blood 258 mg/dL (70-99); Phosphorus, Blood 2.8 mg/dL (2.5-4.9); Potassium, Blood 4.5 mmol/L (3.5-5.5); Sodium, Blood 138 mmol/L (136-145)
--- NOTE | 2020-07-06 06:23 | NUR ---
SHIFT SUMMARY PT CONTINUES TO BE A&O X4. VSS. MONITOR SHOWING AFIB, HR 80's-130's. SPO2 > 92% ON 10L OXYMIZER. PT REPORTS HAVING PRONED MULTIPLE TIMES THIS SHIFT W/ REPORTS OF IMPROVEMENT IN BREATHING. NO OTHER EVENTS. WILL CONTINUE TO MONITOR & PROVIDE CARE UNTIL REPORT OFF TO DAY SHIFT RN.
--- NOTE | 2020-07-06 08:47 | NUR ---
insulin verified by carlos pleitez
--- NOTE | 2020-07-06 18:04 | NUR ---
SHIFT NOTE PT HAS BEEN RESTING WELL IN BED ON 15L O2. STS BREATHING IS EASIER TODAY, LAUGHING AND JOKING WITH STAFF. ANSWERS QUESTIONS APPORPRIATELY IN FULL SENTENES. VSS. PT DID REQUIRE 2 DOSES OF METOPOROL TODAY FOR RATE CONTROL FOR AFIB THAT REACHED THE 130s. SPO2 HAS RANGED FROM 90-92% ON THE 15L O2. OTHER ALFARO THERE WERE NO NOTABLE CHANGES TODAY
--- NOTE | 2020-07-07 06:12 | NUR ---
SUMMARY PT IS ALERT AND ORIENTED, COOPERATIVE WITH CARE. HE SLEPT MOST THE NIGHT. PT REPOSITIONED HIMSELF INCLUDING PRONE POSITIONING AT TIMES. BED BATH WAS GIVEN AND PT BRUSHED HIS TEETH. IVs IN RIGHT AND LEFT WRIST WERE NO LONGER PATENT AND WERE REMOVED, NEW IV PLACED IN LEFT FOREARM. VSS, NO ACUTE CHANGES, INSULING GIVE ONCE DUE TO HIGH BLOOD SUGAR. 02 SATS REMAINED ABOVE 90% ON 15L VIA OXYMIZER. CALL LIGHT IN REACH, WILL CONTINUE TO MONITOR.
--- NOTE | 2020-07-07 18:19 | NUR ---
SHIFT SUMMARY PT AXO, PLEASANT AND COOPERATIVE WITH CARE. PT CONTINUES TO RUN AFIB FROM 90'S TO 110'S THOUGH PT HAD ELEVATED HR SUSTAINING 150-160 PER FILM SOUND COORDINATOR AT 1005. CHARGE NURSE NOTIFIED,PT MEDICATED PER EMAR. DR ALEXIS ALSO NOTIFIED, NEW ORDER IN PLACE. PT ON 8L VIA HIGH FLOW NC, 91%. RT ENCOURAGES PRONE POSITION THROUGHOUT THE SHIFT. PT DENIES PAIN AND NV. VOIDING INDEPENDENTLY IN URINAL. NO OTHER CHANGES THIS SHIFT. BED IN LOW POSITON, CALL LIGHT WITHIN REACH.
--- NOTE | 2020-07-08 01:42 | NUR ---
PATIENT IS ALERT AND ORIENTED AND COOPERATIVE WITH CARE. TALKED TO PATIENT ABOUT PRONE POSITIONING AND HE STATES THAT HE HAS BEEN LYING PRONE THROUGHOUT THE NIGHT. 02 SATS ABOVE 90% ON 7L NC, 02 DROPS TO UPPER 80s WITH EXERTION BUT QUICKLY RECOVERS. PATIENT REPOSITIONS INDEPENDENTLY IN BED. VSS, WITH NO ACUTE CHANGES. CALL LIGHT IN REACH, WILL CONTINUE TO MONITOR.
--- NOTE | 2020-07-08 05:53 | NUR ---
CHANGED RIGHT IJ DRESSING. STARTED NEW IV IN RIGHT FOREARM BECAUSE THE LEFT FOREARM INFILTRATED. PT AT 92% 02 ON 7L NC. NO ACUTE CHANGES. CALL LIGHT IN REACH.
--- NOTE | 2020-07-09 02:17 | NUR ---
PATIENT IS ALERT AND ORIENTED. PATIENT STATES HE HAS BEEN DOING PRONE POSITIONING AND FEELS IT HAS HELPED AND WILL CONTINUE TO PRONE POSIITON INTERMITTENLY THROUGH THE NIGHT. 02 >90% ON 5L NC, TRIED 4L AND PATIENT STATED HE WAS FEELING SLIGHTLY SOB AND 02 WOULD DROP TO THE MID 80s. WILL KEEP ON 5L FOR NOW. PATIENT IS CURRENTLY SLEEPING. VSS, NO ACUTE CHANGES. CALL LIGHT IN REACH, WILL CONTINUE TO MONITOR.
--- NOTE | 2020-07-09 05:16 | NUR ---
PATIENT PRONE FREQUENTLY THROUGH THE NIGHT. 02 SATS >90% 4L VIA NC. REPOSTIONS INDEPENDTLY IN BED. SLEPT MOST THE NIGHT. VSS, NO ACUTE CHANGES. CALL LIGHT IN REACH, WILL CONTINUE TO MONITOR.
[2020-07-09] MEDS ORDERED: METO25ER PO (13:30)
--- NOTE | 2020-07-09 18:08 | NUR ---
SHIFT SUMMARY: PT CONTINUES TO SHOW MARKED IMPROVEMENT T/OUT THE DAY. PT OXYGEN FLOW HAS BEEN MAINTAINED BETWEEN 4-5 L/MIN, CURRENTLY AT 4L/MIN. PT ABLE TO WALK WITH SBA TO RESTROOM, [employer] EXECUTIVE DIRECTOR REPORTED BM. PT ALSO TRANSITIONING BETWEEN BEDSIDE CHAIR AND BED, TOLERATING WELL. PT IS PENDING DC HOME. HOME O2 EVAL COMPLETED BY RESPIRATORY THERAPY. CURRENTLY AWAITING INSURANCE APPROVAL FOR FURTHER PLAN OF ESTABLISHING HOME O2. PT AWARE OF PLAN, AGREEABLE TO STAY ONE MORE NIGHT. WILL CONTINUE TO MONITOR AND TREAT ACCORDINGLY.
--- NOTE | 2020-07-09 19:15 | NUR ---
ASSUMED CARE OF PATIENT, REPORT RECEIVED FROM LYNDON WHITEHEAD. PT A&O, SITTING UP IN BED, O2@4LPM VIA N/C HUMIDIFIED. NO ACUTE RESP DISTRESS, PT STATES HE FEELS SO MUCH BETTER THEN WHEN HE WAS ADMITTED A WEEK AGO. WILL CONTINUE TO MONITOR
--- NOTE | 2020-07-10 13:59 | NUR ---
PATIENT PROVIDED DISCHARGE INFO REGARDING FOLLOW UP PLANS, SELF-ISOLATION WITH COVID 19, MEDICATION INFORMATION, AND REASONS TO RETURN TO THE HOSPITAL. PATIENT VERBALIZED UNDERSTANDING, NO SIGNS OF ACUTE DISTRESS.
== END 2020-07-10 14:32 | disposition home or self-care (01) | DRG 177 ==
LOC: ER 07:02 → ICUW 11:11 → ICUE 11:11 → PCU 07-04 16:55 → ENPENDDIS 07-09 13:26 → PCU 07-10 14:32
PROVIDERS: Emergency Medicine; Family Medicine; Internal Medicine Pulmonary Disease; Nurse Practitioner Acute Care; ADMIT Internal Medicine
PROC: 02HV33Z Insertion of Infusion Device into Superior Vena Cava, Percutaneous Approach (ICD-10-PCS; principal; 2020-07-02)
PROC: 3E043XZ Introduction of Vasopressor into Central Vein, Percutaneous Approach (ICD-10-PCS; 2020-07-02)
PROC: 8E0ZXY6 Isolation (ICD-10-PCS; 2020-07-02)
DX: U07.1 COVID-19 (principal); J96.01 Acute respiratory failure with hypoxia; R57.1 Hypovolemic shock; J12.89 Other viral pneumonia; N17.9 Acute kidney failure, unspecified; E87.1 Hypo-osmolality and hyponatremia; D69.6 Thrombocytopenia, unspecified; E87.8 Other disorders of electrolyte and fluid balance, not elsewhere classified; E86.0 Dehydration; K21.9 Gastro-esophageal reflux disease without esophagitis; E66.01 Morbid (severe) obesity due to excess calories; J45.909 Unspecified asthma, uncomplicated; Z89.421 Acquired absence of other right toe(s); Z79.4 Long term (current) use of insulin; Z87.891 Personal history of nicotine dependence; E78.5 Hyperlipidemia, unspecified; E88.81 Metabolic syndrome and other insulin resistance; Z99.81 Dependence on supplemental oxygen; Z68.39 Body mass index [BMI] 39.0-39.9, adult
CPT/HCPCS: 0202U; 36415; 36556; 36600; 71045; 71250; 80048; 80053; 80069; 82330; 82728; 82803; 82947; 83605; 83690; 83735; 83880; 84100; 84145; 84484; 85025; 85379; 85610; 86140; 87040; 87070; 87205; 93005; 93010; 94640; 94760; 94761; 94762; 96361-59; 96365-59; 96366-59; 96368; 96375-59; 99291-25; 99292; A9270; A9270-GY; C1751; C9113; J1100; J1956; J2405; J7030; J7050; J7060